=== PATIENT | female | born 1980 | race Caucasian/White ===

== ENCOUNTER → 2017-07-19 08:38 | Outpatient (CLI) | payer OTHER, SELFPAY ==
[2017-07-19 09:38] LABS: Add Manual Diff / Slide Review NO; Basophils Percent Auto 0.3 % (0-2); Eosinophils Percent Auto 1.9 % (2-4); Hematocrit 37.7 % (36-46); Hemoglobin 12.6 g/dL (12.0-16.0); Lymphocytes Percent Auto 14.3 % (25-40); Mean Corpuscular HGB Conc 33.3 % (30-36); Mean Corpuscular Hemoglobin 28.9 PG (26-34); Mean Corpuscular Volume 86.7 fL (80-100); Monocytes Percent Auto 7.1 % (3-14); Neutrophils Absolute Auto 5600 /uL (3000-5900); Neutrophils Percent Auto 76.4 % (50-75); Platelet Count 275 X10^3/uL (150-400); Red Blood Cell Count 4.35 X10^6/uL (4.0-5.2); Red Cell Distribution Width 12.8 % (11.6-14.8); White Blood Cell Count 7.3 X10^3/uL (4.5-11.0)
[2017-07-19 10:29] LABS: Appearance Urine UA SL CLOUDY; Bilirubin Urine UA NEGATIVE (NEGATIVE); Color Urine UA YELLOW; Glucose Urine UA NEGATIVE (Normal); Ketones Urine UA NEGATIVE (NEGATIVE); Leukocyte Esterase Urine UA 3+ (NEGATIVE); Nitrite Urine UA NEGATIVE (NEGATIVE); Occult Blood Urine UA 1+ (Negative); Protein Urine UA NEGATIVE (Negative); Urobilinogen Urine UA 0.2 E.U./dL (0.2)
[2017-07-19 10:36] LABS: Hepatitis B Surface Antigen NEGATIVE s/c (NEGATIVE)
[2017-07-19 10:43] LABS: RBC Urine 1-5/HPF (0-5/HPF)
[2017-07-19 10:44] LABS: Amorphous Sediment Urine 2+; Culture Indicated Urine Cult Not Indicated; Squamous Epithelial Cell Urine 5-10 /HPF; WBC Urine 10-30/HPF (0-5/HPF)
[2017-07-19 10:50] LABS: HIV 1 and 2 Antibody NEGATIVE (NEGATIVE); Hep C Virus Ab w/Reflex Quant NEGATIVE s/c (NEGATIVE)
[2017-07-23 15:59] LABS: HSV 2 IGG AB < 0.90 index (< 0.90)
[2017-07-25 12:50] LABS: Rapid Plasma Reagin NON-REACTIVE
== END ==
PROVIDERS: PCP Specialist; Visit Provider Specialist
DX: Z34.91 Encounter for supervision of normal pregnancy, unspecified, first trimester (principal); Z3A.01 Less than 8 weeks gestation of pregnancy
CPT/HCPCS: 36415; 80055; 86850; 86900; 86901

== ENCOUNTER → 2017-08-01 16:19 | Outpatient (CLI) | payer OTHER, SELFPAY ==
[2017-08-09 10:01] LABS: Informaseq SEE SEPARATE REPORTS
== END ==
PROVIDERS: PCP Specialist; Visit Provider Specialist
DX: Z34.81 Encounter for supervision of other normal pregnancy, first trimester (principal); O09.529 Supervision of elderly multigravida, unspecified trimester
CPT/HCPCS: 36415; 81507; 86787

== ENCOUNTER → 2017-08-22 08:57 | Outpatient (CLI) | payer OTHER, SELFPAY ==
[2017-08-30 07:04] LABS: AFP, Serum 20.9 ng/mL; Calc Gestational Age 16.4; Est Date Determined by US; Maternal Weight 212 lbs; Number of Fetuses 1; Prev Pregnancies Down Syndrome NOT GIVEN
== END ==
PROVIDERS: Visit Provider Specialist
DX: Z3A.16 16 weeks gestation of pregnancy (principal)
CPT/HCPCS: 36415; 82105

== ENCOUNTER → 2017-09-25 07:38 | Outpatient (CLI) | payer OTHER, SELFPAY ==
--- NOTE | 2017-09-25 07:38 | DI.US.S_ITS ---
PROCEDURE: US OB >= 14 WEEKS FETUS INDICATIONS: 20 WEEK ANATOMIC SURVEY OUTSIDE/PRIOR DATING DATA: Last menstrual period (LMP): 04/29/2017. LMP-based estimated date of delivery (FERNANDO): 02/03/2018. First dating scan (date and location): 07/22/2017. Estimated date of delivery (FERNANDO) from first dating scan: 02/06/2018. TECHNIQUE: Real-time scanning was performed of the fetus, with image documentation and biometric measurements. Endovaginal scanning: Not required COMPARISON: [facility], , OB >= 14 WEEKS FETUS, 07/22/2017, 8:26. FINDINGS: General: A single living intrauterine gestation is present. Presentation: Vertex. Placenta: Placental position is anterior, without previa. Amniotic fluid index: 18.0 cm, normal range is 5-24 cm. heart rate: 144 beats per minute. Maternal cervical canal: 4.0 cm long. Normal lower limit is 2.5 cm. biometrics: Biparietal diameter: 20 weeks 3 days Head circumference: 20 weeks 2 days Abdominal circumference: 22 weeks one day Femur length: 20 weeks 5 days Estimated gestational age from initial scan: 20 weeks 6 days Composite gestational age from present scan: 20 weeks 6 days, normal growth Estimated weight and percentile: 414 g at the 70th percentile Measurement variability for biometric dating: +/- 7 days from 14 weeks to 15 weeks 6 days gestation, +/- 10 days from 16 weeks to 21 weeks 6 days gestation, +/- 2 weeks from 22 weeks to 27 weeks 6 days gestation, +/- 3 weeks for 28 weeks gestation or later. weight reference: 4500 g or EFW >90/95% is considered macrosomia or large for gestational age. EFW <10% is small for gestational age. EFW 5% or less is considered intra-uterine growth restriction. Anatomic survey: Neuro: Ventricles are non-dilated at less than 10 mm. Cisterna magna is normal at 3-11 mm. Cerebellum is normal in size and morphology. Nuchal skin fold: Normal at less than 6 mm between 14-21 weeks gestational age. Face: Nose and lips, facial profile are normal. Spine: No evidence for spina bifida. Heart: 4-chambered heart is present, with normal ventricular outflow tracts. Diaphragm: Diaphragm is intact. Stomach: Left-sided stomach is present. Kidneys: No hydronephrosis. Normal is less than 5 mm in 2nd trimester, less than 7 mm in 3rd trimester. Cord: 3-vessel cord has orthotopic insertion. Bladder: Normal in size. Extremities: All 4 extremities identified. IMPRESSION: Single, live intrauterine gestation in Vertex lie showing composite gestational age of 20 weeks 6 days, normal growth and normal anatomy. Dictated by: Vance Fine M.D. on 09/25/2017 at 8:42 Approved by: Vance Fine M.D. on 09/25/2017 at 8:45
== END ==
PROVIDERS: PCP Specialist; Visit Provider Specialist
DX: Z36.89 Encounter for other specified antenatal screening (principal); Z3A.20 20 weeks gestation of pregnancy
CPT/HCPCS: 76811

== ENCOUNTER → 2017-10-31 09:05 | Outpatient (CLI) | payer OTHER, SELFPAY ==
[2017-10-31 10:55] LABS: Hematocrit 33.4 % (36-46); Hemoglobin 11.2 g/dL (12.0-16.0)
[2017-10-31 15:13] LABS: GTT (PREG) 1 Hour PP 50gm Dose 111 mg/dL (76-139)
== END ==
PROVIDERS: PCP Specialist; Visit Provider Specialist
DX: Z3A.26 26 weeks gestation of pregnancy (principal)
CPT/HCPCS: 36415; 82950; 85014; 85018

== ENCOUNTER → 2018-01-08 10:16 | Outpatient (CLI) | payer OTHER, SELFPAY ==
[2018-01-09 13:16] LABS: Strep Grp B PCR NEG for Grp B Strep
== END ==
PROVIDERS: PCP Specialist; Visit Provider Family Medicine
DX: Z3A.36 36 weeks gestation of pregnancy (principal)
CPT/HCPCS: 87653

== ENCOUNTER 2018-01-24 10:34 | Outpatient (CLI) | payer OTHER, SELFPAY ==
[2018-01-24 11:00] LABS: Add Manual Diff / Slide Review NO; Basophils Percent Auto 0.5 % (0-2); Eosinophils Percent Auto 1.2 % (2-4); Hemoglobin 10.6 g/dL (12.0-16.0); Lymphocytes Percent Auto 15.7 % (25-40); Mean Corpuscular Volume 81.9 fL (80-100); Monocytes Percent Auto 7.8 % (3-14); Neutrophils Absolute Auto 5200 /uL (3000-5900); Neutrophils Percent Auto 74.8 % (50-75); Platelet Count 249 X10^3/uL (150-400); Red Blood Cell Count 3.91 X10^6/uL (4.0-5.2); Red Cell Distribution Width 14.1 % (11.6-14.8); White Blood Cell Count 6.9 X10^3/uL (4.5-11.0)
[2018-01-24 11:18] LABS: Alanine Aminotransferase 22 IU/L (9-52); Albumin 3.6 g/dL (3.5-5.0); Albumin Globulin Ratio 1.2 (1.0-2.8); Alkaline Phosphatase 170 U/L (38-126); Aspartate Aminotransferase 18 IU/L (14-36); BUN Creatinine Ratio 13.3 (6-22); Bilirubin Total 0.2 mg/dL (0.2-1.3); Bilirubin Unconjugated 0.1 mg/dL (0.0-1.1); Blood Urea Nitrogen 8 mg/dL (7-17); Calcium 9.2 mg/dL (8.4-10.2); Carbon Dioxide 22 mmol/L (22-32); Chloride 105 mmol/L (98-107); Estimated Glomerular Filt Rate > 60.0 mL/min (>60); Globulin 2.9 g/dL (1.7-4.1); Glucose 114 mg/dL (70-100); HEMOLYSIS < 15 (0-50); Potassium 4.4 mmol/L (3.4-5.1); Sodium 138 mmol/L (137-145); Total Protein 6.5 g/dL (6.3-8.2); Uric Acid 3.7 mg/dL (2.5-6.2)
--- NOTE | 2018-01-24 11:59 | PM.OBTRLD ---
Visit Information Visit Information Date of evaluation: 01/24/18 Primary OB Provider: Sarah Li Reason for Evaluation: Yes other Comments/Additional reasons for admission: Elevated blood pressures at 38 weeks gestation Vital Signs Vital Signs: Initial blood pressure 154/70 followed by 146/68 followed by 110/57 Review of Systems Review of Systems Patient denies headaches, epigastric pain, and scotomata. All systems reviewed & are unremarkable except as noted in HPI and below Objective Labs Result Diagrams: 01/24/18 10:50 01/24/18 10:50 Labs: Laboratory Results - last 24 hr 01/24/18 01/24/18 10:50 10:50 WBC 6.9 RBC 3.91 L Hgb 10.6 L Hct 32.0 L MCV 81.9 MCH 27.0 MCHC 33.0 RDW 14.1 Plt Count 249 Neut % (Auto) 74.8 Lymph % (Auto) 15.7 L [place] % (Auto) 7.8 Eos % (Auto) 1.2 L Baso % (Auto) 0.5 Neut # (Auto) 5200 Sodium 138 Potassium 4.4 Chloride 105 Carbon Dioxide 22 BUN 8 Creatinine 0.60 Estimated GFR > 60.0 BUN/Creatinine Ratio 13.3 Glucose 114 H Uric Acid 3.7 Calcium 9.2 Total Bilirubin 0.2 Conjugated Bilirubin 0.0 Unconjugated Bilirubin 0.1 AST 18 ALT 22 Alkaline Phosphatase 170 H Total Protein 6.5 Albumin 3.6 Globulin 2.9 Albumin/Globulin Ratio 1.2 Evaluation Evaluation Baseline heart rate: 145 Variability: Moderate (11-25) monitor accelerations: Present monitor decelerations: Absent Laboratory results: Laboratory Tests 01/24/18 01/24/18 10:50 10:50 WBC 6.9 RBC 3.91 L Hgb 10.6 L Hct 32.0 L MCV 81.9 MCH 27.0 MCHC 33.0 RDW 14.1 Plt Count 249 Neut % (Auto) 74.8 Lymph % (Auto) 15.7 L [place] % (Auto) 7.8 Eos % (Auto) 1.2 L Baso % (Auto) 0.5 Neut # (Auto) 5200 Sodium 138 Potassium 4.4 Chloride 105 Carbon Dioxide 22 BUN 8 Creatinine 0.60 Estimated GFR > 60.0 BUN/Creatinine Ratio 13.3 Glucose 114 H Uric Acid 3.7 Calcium 9.2 Total Bilirubin 0.2 Conjugated Bilirubin 0.0 Unconjugated Bilirubin 0.1 AST 18 ALT 22 Alkaline Phosphatase 170 H Total Protein 6.5 Albumin 3.6 Globulin 2.9 Albumin/Globulin Ratio 1.2 Diagnosis, Plan/Disposition Final Diagnosis (1) Hypertension affecting in third trimester: Current Visit: No Status: Acute (2) 38 weeks gestation of : Current Visit: No Status: Acute Plan/Disposition Plan: Precautions reviewed with the patient. Follow-up in 5 days OB Disposition: home
== END 2018-01-24 11:39 | disposition home or self-care (01) ==
LOC: LABOR 11:39 → OB 01-27 15:43
PROVIDERS: PCP Specialist; Visit Provider Specialist
DX: O16.3 Unspecified maternal hypertension, third trimester (principal); Z3A.38 38 weeks gestation of pregnancy
CPT/HCPCS: 36415; 59025; 80053; 80076; 84550; 85025; G0378; G0379

== ENCOUNTER 2018-02-03 11:51 | Outpatient (CLI) | payer OTHER, SELFPAY ==
--- NOTE | 2018-02-03 12:25 | PM.OBTRLD ---
Visit Information Visit Information Date of evaluation: 02/03/18 Primary OB Provider: Sarah Li Reason for Evaluation: Yes non-stress test non-stress test reason: hypertension/pre-eclampsia Vital Signs Vital Signs: 137/81 Evaluation Evaluation Baseline heart rate: 135 Variability: Moderate (11-25) monitor accelerations: Present monitor decelerations: Absent Diagnosis, Plan/Disposition Final Diagnosis (1) Hypertension affecting in third trimester: Current Visit: No Status: Acute (2) 40 weeks gestation of : Current Visit: Yes Status: Acute Plan/Disposition Plan: Patient with initial increased blood pressure in the office but decreased with resting. Reactive nonstress test. OB Disposition: home
--- NOTE | 2018-02-03 12:28 | P.TNLD_ITS ---
Visit Information Visit Information Date of evaluation: 02/03/18 Primary OB Provider: Sarah Li Reason for Evaluation: Yes non-stress test non-stress test reason: hypertension/ pre-eclampsia Vital Signs Vital Signs: 137/81 Evaluation Evaluation Baseline heart rate: 135 Variability: Moderate (11-25) monitor accelerations: Present monitor decelerations: Absent Diagnosis, Plan/Disposition Final Diagnosis (1) Hypertension affecting in third trimester: Current Visit: No Status: Acute (2) 40 weeks gestation of : Current Visit: Yes Status: Acute Plan/Disposition Plan: Patient with initial increased blood pressure in the office but decreased with resting. Reactive nonstress test. OB Disposition: home
== END 2018-02-03 12:39 | disposition home or self-care (01) ==
LOC: OB 02-04 09:59
PROVIDERS: PCP Specialist; Visit Provider Specialist
DX: Z34.83 Encounter for supervision of other normal pregnancy, third trimester (principal); Z3A.40 40 weeks gestation of pregnancy
CPT/HCPCS: 59025; G0378; G0379

== ENCOUNTER 2018-02-07 08:21 | Outpatient (CLI) | payer OTHER, SELFPAY ==
--- NOTE | 2018-02-07 08:57 | P.TNLD_ITS ---
Visit Information Visit Information Date of evaluation: 02/07/18 Primary OB Provider: Sarah Li Reason for Evaluation: Yes non-stress test non-stress test reason: other ( Postdates) Evaluation Evaluation Baseline heart rate: 140 Variability: Moderate (11-25) monitor accelerations: Present monitor decelerations: Absent Category of Tracing: I Diagnosis, Plan/Disposition Final Diagnosis (1) 40 weeks gestation of : Current Visit: No Status: Acute (2) Hypertension affecting in third trimester: Current Visit: No Status: Acute Plan/Disposition Plan: Reactive nonstress test. Patient is scheduled for AROM induction in 3 days.
== END 2018-02-07 09:00 | disposition home or self-care (01) ==
LOC: LABOR 10:14 → OB 02-11 13:28
PROVIDERS: PCP Specialist; Visit Provider Specialist
DX: Z3A.40 40 weeks gestation of pregnancy (principal); Z34.83 Encounter for supervision of other normal pregnancy, third trimester; O16.3 Unspecified maternal hypertension, third trimester
CPT/HCPCS: 59025; 59050; G0378; G0379

== ENCOUNTER 2018-02-10 07:06 | Inpatient (IN) | payer OTHER, SELFPAY ==
[2018-02-10 08:17] LABS: Add Manual Diff / Slide Review NO; Eosinophils Percent Auto 0.9 % (2-4); Hemoglobin 9.5 g/dL (12.0-16.0); Lymphocytes Percent Auto 18.1 % (25-40); Mean Corpuscular HGB Conc 31.7 % (30-36); Mean Corpuscular Hemoglobin 25.8 PG (26-34); Mean Corpuscular Volume 81.3 fL (80-100); Monocytes Percent Auto 7.4 % (3-14); Neutrophils Absolute Auto 5100 /uL (3000-5900); Neutrophils Percent Auto 72.6 % (50-75); Platelet Count 208 X10^3/uL (150-400); Red Blood Cell Count 3.69 X10^6/uL (4.0-5.2); Red Cell Distribution Width 14.7 % (11.6-14.8); White Blood Cell Count 7.1 X10^3/uL (4.5-11.0)
[2018-02-10 08:36] VITALS: BP 153/72
[2018-02-10] MEDS: LACTATED RINGERS 1,000 ML 100 ML IV ×2 (09:40→11:14)
[2018-02-10] MEDS: OXYTOCIN PREMIX 30 UNIT/500 ML PLAST..BAG IV (09:40)
--- NOTE | 2018-02-10 11:55 | P.HPOB_ITS ---
OB HPI Date/Time Date of admission: 02/10/18 Date Patient Seen: 02/10/18 Time Patient Seen: 08:00 History of Present Condition Chief complaint: INDUCTION : 2 Para: 1 Estimated Date of Delivery: 02/02/18 Estimated Gestational Age (weeks): 41 Narrative: Tasha Curry is a 37 year old female admitted for postdates induction Indications Indication for induction OB: post dates History of Present care: good care, initiated at week # (11), number of visits (12) and pounds weight gain (31) Dating criteria: LMP confirmed by 1st trimester US Ultrasounds: normal mid trimester US Obstetrical complications: none Medical complications: none Preadmission Labs Blood type: O (+) positive -: Antibody screen: negative, GBS status: negative, HBsAG: negative, HIV: negative, HSV 1: positive and HSV 2: negative -: Chlamydia screen: not detected and Gonorrhea screen: not detected -: Rubella: immune and Varicella: immune HCAB: negative PAP: Normal Cell-free DNA: Normal female 1 hr GTT: 111 Evaluation Evaluation Baseline heart rate: 130 Variability: Moderate (11-25) monitor accelerations: Present monitor decelerations: Absent Category of Tracing: I Cervical dilation (cm): 5 Cervical effacement (%): 90 station: -1 Laboratory results: Laboratory Tests 02/10/18 02/10/18 07:45 07:45 WBC 7.1 RBC 3.69 L Hgb 9.5 L Hct 30.0 L MCV 81.3 MCH 25.8 L MCHC 31.7 RDW 14.7 Plt Count 208 Neut % (Auto) 72.6 Lymph % (Auto) 18.1 L [place] % (Auto) 7.4 Eos % (Auto) 0.9 L Baso % (Auto) 1.0 Neut # (Auto) 5100 Blood Type O Positive Antibody Screen Negative PFSH Medical History Urticaria (Chronic) Hx of migraines (Chronic) Social History Smoking Status: Never smoker Meds Home Medications Medication Instructions Recorded Confirmed Type 1 tab PO DAILY 07/19/17 02/10/18 History vitamin,calcium,pchrchyj-cfuh-nuomb acid tablet Allergies Allergy/AdvReac Type Severity Reaction Status Date / Time Sulfa (Sulfonamide Allergy Mild Hives Verified 07/19/17 08:47 Antibiotics) Review of Systems Review of Systems Patient denies any signs or symptoms of preeclampsia. No rupture membranes. Good movement. All systems reviewed & are unremarkable except as noted in HPI and below Exam Vital Signs (past 8 hours): Blood pressure 153/72, pulse of 100, temperature 97.4?- 02/10/18 08:36 Blood Pressure 153/72 H Narrative Exam Narrative: HEENT exam within normal limits. Lungs are clear to auscultation and percussion. Heart is regular rate and rhythm no S3-S4 or murmurs. Abdomen is gravid. Nontender. Extremities with trace edema and nontender. Normal DTRs. Objective Labs Result Diagrams: 02/10/18 07:45 Labs: Laboratory Results - last 24 hr 02/10/18 02/10/18 07:45 07:45 WBC 7.1 RBC 3.69 L Hgb 9.5 L Hct 30.0 L MCV 81.3 MCH 25.8 L MCHC 31.7 RDW 14.7 Plt Count 208 Neut % (Auto) 72.6 Lymph % (Auto) 18.1 L [place] % (Auto) 7.4 Eos % (Auto) 0.9 L Baso % (Auto) 1.0 Neut # (Auto) 5100 Blood Type O Positive Antibody Screen Negative Assessment and Plan (1) 41 weeks gestation of : Current visit: Yes Status: Acute Plan: Plan: Patient with advanced cervical dilation at 41 weeks. Initial induction attempt will be with a ROM may need Pitocin. Epidural catheter as needed. Anticipate vaginal delivery.
--- NOTE | 2018-02-10 13:37 | PM.OBPRVD ---
Delivery date: 02/10/18 Intrapartal events: None Induction method: per pitocin protocol Delivery augmentation: rupture of membranes Delivery monitor: external FHT and external uterine Route of delivery: Laceration description: Periurethral - 1st Degree Delivery repair: chromic (3-0) Estimated blood loss (mL): 100 Anesthesia type: Epidural Narrative: Patient arrived on Labor and delivery for post-dates induction. She was AROMed and then underwent Pitocin augmentation. heart tones were category 1-2 throughout labor. The patient delivered spontaneously, over an intact perineum a viable female infant was placed on the maternal abdomen. After cord stopped pulsating the cord was clamped cut and cord bloods obtained. The placenta delivered spontaneously, intact, with 3 vessels. There was a first-degree perineal tear that was repaired with 3 0 chromic suture. No cervical or vaginal tears. Baby's Apgars were 9 and 9. Weight 9 lb 0.91 oz, 4108 g. Initially there was very little blood loss. The patient had a hemorrhage that responded eventually to Cytotec and then Hemabate. Both and mother doing well. [place] [facility] 1: Infant gender: Female Presentation: vertex Placenta delivery description: Spontaneous cord vessel description: 3 Vessels score (1 min): 9 score (5 min): 9 Plan for aftercare: Routine care
[2018-02-10] MEDS: IBUPROFEN 600 MG TABLET PO ×2 (14:53→21:08)
[2018-02-10] MEDS: miSOPROStol 200 MCG TABLET 800 MCG PR (15:07)
[2018-02-10] MEDS: HYDROCODONE/ACET 5/325 TABLET 2 TAB PO ×3 (15:34→23:36)
--- NOTE | 2018-02-10 17:19 | P.PCNOB_ITS ---
Intrapartal events: None Induction method: per pitocin protocol Delivery monitor: external FHT and external uterine Route of delivery: Laceration description: Periurethral - 1st Degree Estimated blood loss (mL): 1,000 Anesthesia type: Epidural Complications: hemorrhage requiring Cytotec and Hemabate [place] Baby 1: Placenta delivery description: Spontaneous cord vessel description: 3 Vessels score (1 min): 9 score (5 min): 9 Narrative: Patient arrived on Labor and delivery for induction for postdates with advanced cervical dilation. She was a round for clear fluid. She was started on Pitocin. She received an epidural for pain control. She progressed normally in labor. heart tones category 1 to category 2 throughout labor. She delivered spontaneously, over an intact perineum, a viable female infant. The infant was placed on maternal abdomen. After the cord stopped pulsating the cord was clamped cut and cord bloods obtained. Patient's placenta delivered spontaneously, intact with, with 3 vessels. The patient was found to have a first-degree perineal tear that was repaired with 3 0 chromic suture. There were no cervical or vaginal tears. The baby weighed 9 lb 1 oz, 4108 g. Apgars were 9 and 9. Initially the patient did not have any significant bleeding. She then had passage of blood clots approximately 700 cc. She was given 800 mg perirectal Cytotec. Her bleeding seemed to improve but then she had another gush of bleeding. She received Hemabate and now appears to be stable. Plan for aftercare: Monitor for further bleeding. Otherwise routine care.
[2018-02-10 19:32] VITALS: TEMP 36.7
[2018-02-10 20:00] VITALS: TEMP 36.7
[2018-02-10 21:08] VITALS: TEMP 36.7
[2018-02-10] MEDS: DERMOPLAST SPRAY 20% 60 ML 1 SPRAY TOP (21:08)
[2018-02-10] MEDS: LANOLIN OINT 7 GM 1 APPLIC TOP (21:08)
[2018-02-10 21:40] VITALS: TEMP 36.7
[2018-02-10 23:36] VITALS: TEMP 36.7
[2018-02-11] MEDS: IBUPROFEN 600 MG TABLET PO ×2 (03:41→10:23)
[2018-02-11 04:15] VITALS: TEMP 36.7
[2018-02-11 06:13] LABS: Hematocrit 23.7 % (36-46); Hemoglobin 7.8 g/dL (12.0-16.0)
--- NOTE | 2018-02-11 10:13 | PM.OBDS.1 ---
Discharge Providers Date of admission: 02/10/18 07:06 Primary care physician: Sarah Li MD Consults: 02/10/18 07:43 Consult to Anesthesiology Urgent Comment: Consulting Provider: Anesthesiologist Reason for consultation: Epidural Has provider been notified: No 02/10/18 14:50 Consult to Electronic Assembly Routine Comment: Discharge provider: Sarah Li MD Discharge Date: 02/11/18 Summary Date Patient Seen: 02/11/18 Time Patient Seen: 10:14 Hospital Course: Patient arrived on Labor and delivery for post-dates induction. She delivered spontaneously a viable female weighing 9 lb. She had uterine atony that resulted in acute blood loss anemia. She had no signs or symptoms of preeclampsia. She was urinating and ambulating. Tolerating regular diet. Blood pressure 141/84, pulse of 86, temperature 98.3?. Abdomen is soft, nontender. Uterus is firm, at U, nontender. Repair is intact. Mild lochia. Extremities with trace edema and nontender. Patient is Rh positive and rubella immune. Peripartum Data Infant Delivery Method: Natural Vaginal Laceration description: Perineal - 1st Degree Procedures: Epidural catheter, vaginal delivery, repair of first-degree perineal tear complications: uterine atony Discharge Diagnosis (1) 41 weeks gestation of : Status: Acute (2) Vaginal delivery: Status: Acute (3) Acute blood loss anemia: Status: Acute Status at Discharge Functional status at discharge: independent ambulation Overall status at discharge: patient is progressing back to baseline Time Spent with Patient Total time spent providing and/or coordinating discharge services: Less than 30 minutes Objective Labs Result Diagrams: 02/11/18 05:55 Labs: Laboratory Results - last 24 hr 02/11/18 05:55 Hgb 7.8 L Hct 23.7 L Discharge Plan Discharge Plan Patient Disposition: Home Discharge Med Rec/Prescriptions Prescriptions: New ibuprofen 600 mg Tablet 600 mg PO Q6HR PRN (Reason: Pain, Mild (1-3)) Qty: 30 RF: 0 ferrous gluconate 324 mg (36 mg iron) tablet 324 mg PO BID Qty: 60 RF: 0 docusate sodium [Dulcolax Stool Softener (dss)] 100 mg capsule 100 mg PO BID PRN (Reason: Prevent constipation) Qty: 30 RF: 0 Continue prenat.vits,yovana,[id number] [ Vitamin] tablet 1 tab PO DAILY RF: 0 Follow up/Referrals: Sarah Li MD [Primary Care Provider] - 1 Month (please f/u w/ Dr. Li on Mar 13 @ 2:30pm) Visit Report/Discharge Packet Stand Alone Forms: Discharge: Care Discharge Data Primary Care Provider: Sarah Li Attending Provider: Sarah Li Admit Date/Time: 02/10/18 07:06
[2018-02-11 10:16] VITALS: BP 141/84; PULSE 86; TEMP 36.7
--- NOTE | 2018-02-11 10:17 | P.DS_ITS ---
Discharge Providers Date of admission: 02/10/18 07:06 Primary care physician: Sarah Li MD Consults: 02/10/18 07:43 Consult to Anesthesiology Urgent Comment: Consulting Provider: Anesthesiologist Reason for consultation: Epidural Has provider been notified: No 02/10/18 14:50 Consult to Tool Lathe Operator Routine Comment: Discharge provider: Sarah Li MD Discharge Date: 02/11/18 Summary Date Patient Seen: 02/11/18 Time Patient Seen: 10:14 Hospital Course: Patient arrived on Labor and delivery for post-dates induction. She delivered spontaneously a viable female weighing 9 lb. She had uterine atony that resulted in acute blood loss anemia. She had no signs or symptoms of preeclampsia. She was urinating and ambulating. Tolerating regular diet. Blood pressure 141/84, pulse of 86, temperature 98.3?. Abdomen is soft, nontender. Uterus is firm, at U, nontender. Repair is intact. Mild lochia. Extremities with trace edema and nontender. Patient is Rh positive and rubella immune. Peripartum Data Infant Delivery Method: Natural Vaginal Laceration description: Perineal - 1st Degree Procedures: Epidural catheter, vaginal delivery, repair of first-degree perineal tear complications: uterine atony Discharge Diagnosis (1) 41 weeks gestation of : Status: Acute (2) Vaginal delivery: Status: Acute (3) Acute blood loss anemia: Status: Acute Status at Discharge Functional status at discharge: independent ambulation Overall status at discharge: patient is progressing back to baseline Time Spent with Patient Total time spent providing and/or coordinating discharge services: Less than 30 minutes Objective Labs Result Diagrams: 02/11/18 05:55 Labs: Laboratory Results - last 24 hr 02/11/18 05:55 Hgb 7.8 L Hct 23.7 L Discharge Plan Discharge Plan Patient Disposition: Home Discharge Med Rec/Prescriptions Prescriptions: New ibuprofen 600 mg Tablet 600 mg PO Q6HR PRN (Reason: Pain, Mild (1-3)) Qty: 30 RF: 0 ferrous gluconate 324 mg (36 mg iron) tablet 324 mg PO BID Qty: 60 RF: 0 docusate sodium [Dulcolax Stool Softener (dss)] 100 mg capsule 100 mg PO BID PRN (Reason: Prevent constipation) Qty: 30 RF: 0 Continue prenat.vits,yovana,gha-ojhn-mivfh [ Vitamin] tablet 1 tab PO DAILY RF: 0 Follow up/Referrals: Sarah iL MD [Primary Care Provider] - 1 Month (please f/u w/ Dr. Li on Mar 13 @ 2:30pm) Visit Report/Discharge Packet Stand Alone Forms: Discharge: Care Discharge Data Primary Care Provider: Sarah Li Attending Provider: Sarah Li Admit Date/Time: 02/10/18 07:06
== END 2018-02-11 16:30 | disposition home or self-care (01) | DRG 768 ==
PROVIDERS: Admitting Provider Specialist; PCP Specialist; Visit Provider Specialist
DX: O48.0 Post-term pregnancy (principal); Z37.0 Single live birth; O72.1 Other immediate postpartum hemorrhage; D62 Acute posthemorrhagic anemia; Z3A.41 41 weeks gestation of pregnancy; O70.0 First degree perineal laceration during delivery
CPT/HCPCS: 01967; 36415; 59050; 59400; 85014; 85018; 85025; 86850; 86900; 86901; J2590; J3010; S0191